=== PATIENT | male | born 1975 ===

== ENCOUNTER 2023-04-29 14:06 | Outpatient (CLI) | payer MEDICARE, SELFPAY ==
--- NOTE | ~2023-04-29 | MR_ITS ---
MRI of the right shoulder Technique: Axial proton-density fat-sat images, coronal proton density fat-sat and T2 fat-sat images, and sagittal T1-weighted and T2 fat-sat images were acquired. Clinical History: Pain Findings: There is mild AC joint degenerative change. Coracoclavicular, coracoacromial, and coracohum eral ligaments appear intact. There is extensive marrow edema in the coracoid process, with probable essentially nondisplaced fracture present. There is mild surrounding soft tissue edema. There is an 8 mm long low-grade articular surface partial tear at the distal supraspinatus tendon ins ertion. No high-grade partial or full-thickness tear of the supraspinatus or infraspinatus tendon denis ntified. Subscapularis tendon is intact, with moderate tendinosis. Tendon of the long head of the bic eps is intact. There is degenerative superior labral tear extending to the anterosuperior and anterior portions. Inferior humeral ligament is intact. No degenerative change of the glenohumeral joint. There is mild amorphous marrow edema in the humeral head, without definite fracture. No fluid distention of the sub acromial/subdeltoid bursa. No muscle atrophy or edema. Impression: Probable nondisplaced fracture of the coracoid process. Consider CT to further confirm, as indicated. 8 mm linear low-grade articular surface partial tear of the distal supraspinatus tendon insertion. Probable degenerative tear of the superior labrum extending to the anterosuperior and anterior portio ns. Reviewed, dictated and finalized at [facility]. [employer] Impression: Probable nondisplaced fracture of the coracoid process. Consider CT to further confirm, as indicated. 8 mm linear low-grade articular surface partial tear of the distal supraspinatu s tendon insertion. Probable degenerative tear of the superior labrum extending to the anterosuperi or and anterior portions.
== END 2023-04-29 14:07 ==
LOC: MICIMG 14:07
PROVIDERS: PCP Physician Assistant; Visit Provider Physician Assistant
DX: M25.511 Pain in right shoulder (principal)
CPT/HCPCS: 73221